=== PATIENT | female | born 1940 | race Caucasian/White ===

== ENCOUNTER 2023-12-11 14:03 | Emergency (ER) | payer MEDICARE, MEDICAID ==
[~2023-12-11] VITALS: Ht 175.3 cm; Wt 68.2 kg
[2023-12-11 14:14] VITALS: BP 133/64; PULSE 87; RESP 16; TEMP 97.2; O2SAT 96
[2023-12-11] MEDS ORDERED: HYDR-3965 PO (15:28)
== END 2023-12-11 16:03 | disposition home or self-care (01) ==
LOC: ER 14:03
DX: S93.692A Other sprain of left foot, initial encounter (principal); S29.8XXA Other specified injuries of thorax, initial encounter; Z88.5 Allergy status to narcotic agent; W18.39XA Other fall on same level, initial encounter; Y93.89 Activity, other specified; Y92.89 Other specified places as the place of occurrence of the external cause; Y99.8 Other external cause status
CPT/HCPCS: 71045; 73630; 99284